=== PATIENT | male | born 1970 | race Caucasian/White ===

== ENCOUNTER 2018-12-23 06:21 | Day surgery (SDC) | payer OTHER, SELFPAY ==
[2018-12-23] VITALS (7 sets, daily range): BP systolic 112–136; BP diastolic 79–96; PULSE 72–85; RESP 16–18; TEMP 36.3–37.2; O2SAT 93–97; BMI 38.0
--- NOTE | 2018-12-23 07:30 | COLBX_PTH ---
PATIENT: CORDELIA DUPREE LOC: EN U#:[id number] AGE/SX: 48/M ROOM: RE12/23/[address]: Dr. Denny Sauceda MD : [id number] BED: DIS: 12/23/2018 SPEC #: [id number] RECD: 12/23/18 09:58 STATUS: DENISE TOR #: [id number] KATINA: 12/23/18 07:[address]: Denny Sauceda DEPT: SURGICAL PATHOLOGY RECD BY: Mauricio Taylor ENTERED: 12/23/18 11:32 SP TYPE: COLON BX OT DR: Dr. Latasha Hobbs MD Tissues: Transverse colon Procedures: Surgery Specimen Level IV HEADER OPERATION: Colonoscopy - open access (MOD) PRE-OP DIAGNOSIS: Screening TISSUE SUBMITTED: Biopsy of distal transverse colon MICROSCOPIC DIAGNOSIS Distal transverse colon, biopsy: Tubular adenoma. TRISH:cherie 12/26/18 MICROSCOPIC DESCRIPTION Slides are reviewed. GROSS DESCRIPTION Received in fixative is one container labeled with the patient's name and designated distal transverse colon. The specimen consists of multiple irregular fragments of light monroe soft tissue that in aggregate measure 0.5 x 0.5 x 0.1 cm. The specimen is totally submitted in one cassette. / SJ:cherie 12/23/18 TC:1 CPT: 54119
--- NOTE | 2018-12-23 07:33 | HP.PCM_ITS ---
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 He denies any acute symptoms. No bright red blood per rectum or melena. No abdominal pain. He did have a previous colonoscopy 10 years prior but is not sure the reason. There is no personal or family history of colon polyps or colon cancer. He otherwise states that he enjoys good health. He states that last year he had some peptic ulcer issues but those have completely resolved. He is denying any epigastric discomfort at this time. Past Medical History Allergies No Known Allergies Allergy (Verified 12/21/18 08:28) Home Medications: Ambulatory Orders Medication Instructions Recorded Multivitamin [Multivitamins] 1 each PO DAILY 12/21/18 Smoking Status: Former smoker Tobacco Use: Cigarettes Review of Systems Constitutional: Denies: Anorexia HEENT: Denies: Difficulty Swallowing Cardiovascular: Denies: Chest Pain, Claudication Respiratory: Denies: Cough Gastrointestinal: Denies: Abdominal Pain, Nausea, Melena Endocrine: Denies: Change in Body Habitus VTE Information - Inpt Only VTE Present on Admission: No Patient Problems: Active and Suspected Problems Screening for intestinal cancer (Acute) - Physical Exam General: Alert, Oriented x3, Cooperative, No apparent distress HEENT: Atraumatic Oral: Moist Mucosa Lungs: Clear to auscultation Cardiovascular: Regular rate, Regular Rhythm Abdomen: Bowel Sounds Present, Soft, Non Tender, Obese Extremities: No Calf Tenderness Skin: No rashes Psych/Mental Status: Normal Affect Vital Signs Temp Pulse Resp BP Pulse Ox 97.4 F L 85 18 131/96 H 95 12/23/18 06:43 12/23/18 06:43 12/23/18 06:43 12/23/18 06:43 12/23/18 06:43 Oxygen Delivery Method Room Air Weight: 265 lb Body Mass Index (BMI) 38.0 Assessment/Plan All Active Problems Screening for intestinal cancer (Acute) Colonoscopy with possible biopsy or polypectomy is indicated. The patient is aware of the technique, benefits, risks, alternatives. He presents via our open access program today. Denny Sauceda M.D., F.A.C.S.
[2018-12-23 07:55] LABS: Absolute Lymphocyte Count 2.08 X10^3/ul (0.83-4.51); Absolute Neutrophil Count 4.3 X10^3/uL (2.0-7.7); Basophil# 0.03 X10^3/uL; Basophil% 0.4 % (0-1); Eosinophil# 0.16 X10^3/uL; Eosinophils% 2.2 % (0-5); Hematocrit 44.9 % (40-54); Hemoglobin 15.6 g/dl (13.0-16.5); Lymphocyte # 2.08 X10^3/ul (4.0); Lymphocyte % 28.9 % (19-41); Mean Corp Hgb Conc 34.7 g/gl (32-36); Mean Corpuscular Hgb 31.6 pg (27.0-32.0); Mean Corpuscular Volume 91.1 fL (80-94); Mean Platelet Vol. 9.9 fl (6.2-12.0); Monocyte# 0.67 X10^3/uL; Monocyte% 9.3 % (0-10); Neutrophil # 4.26 X10^3/uL (2.7-7.7); Neutrophil % 59.2 % (47-70); POSITIVE COUNT NO; POSITIVE DIFFERENTIAL NO; POSITIVE MORPHOLOGY NO; Platelet Count 213 K/mm3 (150-450); RBC Distribution Width CV 12.7 % (11.6-14.6); Red Blood Count 4.93 M/mm3 (4.6-6.2); White Blood Count 7.2 K/mm3 (4.4-11.0)
--- NOTE | 2018-12-23 08:08 | OP.ENDO_ITS ---
12/23/2018 Latasha Hobbs [place] [id number] [address] Re : Colonoscopy procedure for Rafael Villafuerte Dear Dr. Hobbs This procedure was performed on Sunday, December 23, 2018. My impressions and recommendations are as follows: Impressions : - Hemorrhoids found on perianal exam. - Diverticulosis in the sigmoid colon and in the descending colon. - Possible 3 mm polyp in the distal transverse colon, removed with a cold biopsy forceps. Resected and retrieved. Recommendations : - Discharge patient to home. - Resume previous diet. - Continue present medications. - Telephone my office for pathology results in 1 week. - Repeat colonoscopy (date not yet determined) for surveillance based on pathology results. My findings are described in the full procedure note, which is enclosed. If I can be of further assistance, please feel free to contact me at Doctor phone number(s): Work: . Sincerely, Denny Sauceda MD 12/23/2018 8:08:13 AM This report has been signed electronically.
[2018-12-23 09:06] LABS: ALB/GLOB Ratio 1.2 RATIO (0.9-2.4); AST(SGOT) 37 U/L (15-37); Alanine Aminotransfer ALT/SGPT 71 U/L (16-61); Albumin, Serum 3.8 g/dL (3.2-5.0); Alkaline Phosphatase 117 U/L (45-117); Anion Gap 6 (5-15); BUN 12 mg/dL (7-18); BUN/Creat Ratio 10.3 RATIO (10-20); Calcium,Total 8.4 mg/dL (8.5-10.1); Chloride 107 mmol/L (98-107); Cholesterol 174 mg/dL (200); Creatinine, Serum 1.16 mg/dL (0.70-1.30); EST Glomerular Filtration Rate 71 mL/min (>60); Est Glom Filt Rate - Afr Amer 86 mL/min (>60); Estimated Creatinine Clearance 78.66 ml/min; Globulin 3.2 g/dL (2.2-4.2); Glucose 109 mg/dL (74-106); High Density Lipoprotein 39 mg/dL; Potassium 3.8 mmol/L (3.5-5.1); Sodium Level 140 mmol/L (136-145); Triglycerides 110 mg/dL; Very Low Density Lipoprotein 22 mg/dL (5-40)
== END 2018-12-23 08:37 | disposition home or self-care (01) ==
LOC: EN 06:24 → AC 06:25
PROVIDERS: Family Provider Family Medicine; PCP Family Medicine; Referring Provider Family Medicine; Visit Provider Surgery
PROC: 0DJD8ZZ Inspection of Lower Intestinal Tract, Via Natural or Artificial Opening Endoscopic (ICD-10-PCS; CPT 45378; principal; 2018-12-23 07:25)
DX: Z12.11 Encounter for screening for malignant neoplasm of colon (principal); D12.3 Benign neoplasm of transverse colon; K64.9 Unspecified hemorrhoids; K57.30 Diverticulosis of large intestine without perforation or abscess without bleeding; Z87.891 Personal history of nicotine dependence
CPT/HCPCS: 45380; 36415; 80053; 80061; 84443; 85025; 88305; 99152; 99153; J7120

== ENCOUNTER → 2019-09-15 16:38 | Outpatient (CLI) | payer OTHER, SELFPAY ==
[2018-12-23 06:43] VITALS: BMI 38.0
[2019-09-15 17:36] LABS: Absolute Lymphocyte Count 2.19 X10^3/uL (0.83-4.51); Absolute Neutrophil Count 4.3 X10^3/uL (2.0-7.7); Basophil# 0.04 X10^3/uL; Basophil% 0.6 % (0-1); Eosinophil# 0.15 X10^3/uL; Eosinophils% 2.1 % (0-5); Hematocrit 44.6 % (40-54); Hemoglobin 14.4 g/dL (13.0-16.5); Lymphocyte # 2.19 X10^3/ul (4.0); Lymphocyte % 30.5 % (19-41); Mean Corp Hgb Conc 32.3 g/dL (32-36); Mean Corpuscular Hgb 30.8 pg (27.0-32.0); Mean Corpuscular Volume 95.3 fL (80-94); Mean Platelet Vol. 11.7 fl (6.2-12.0); Monocyte# 0.53 X10^3/uL; Monocyte% 7.4 % (0-10); NRBC Flagged by Analyzer 0 % (0-5); Neutrophil # 4.25 X10^3/uL (2.7-7.7); Neutrophil % 59.3 % (47-70); Platelet Count 195 K/mm3 (150-450); RBC Distribution Width CV 12.8 % (11.6-14.6); RBC Distribution Width SD 43.9 fl (35.1-43.9); Red Blood Count 4.68 M/mm3 (4.6-6.2); White Blood Count 7.2 K/mm3 (4.4-11.0)
[2019-09-15 18:17] LABS: ALB/GLOB Ratio 1.3 RATIO (0.9-2.4); AST(SGOT) 15 U/L (15-37); Alanine Aminotransfer ALT/SGPT 40 U/L (16-61); Albumin, Serum 3.9 g/dL (3.2-5.0); Alkaline Phosphatase 104 U/L (45-117); Anion Gap 4 (5-15); BUN 22 mg/dL (7-18); BUN/Creat Ratio 21.2 RATIO (10-20); Calcium,Total 9.3 mg/dL (8.5-10.1); Chloride 108 mmol/L (98-107); Creatinine, Serum 1.04 mg/dL (0.70-1.30); EST Glomerular Filtration Rate 80 mL/min (>60); Est Glom Filt Rate - Afr Amer 97 mL/min (>60); Glucose 83 mg/dL (74-106); Potassium 4.1 mmol/L (3.5-5.1); Protein, Total 6.9 g/dL (6.4-8.2); Sodium Level 141 mmol/L (136-145); Thyroid Stim Hormone (TSH) 2.35 uIU/mL (0.358-3.74)
== END ==
PROVIDERS: PCP Family Medicine; Visit Provider Family Medicine
DX: K21.9 Gastro-esophageal reflux disease without esophagitis (principal); R42 Dizziness and giddiness
CPT/HCPCS: 36415; 80053; 84443; 85025

== ENCOUNTER 2019-10-17 09:08 | Day surgery (SDC) | payer OTHER, SELFPAY ==
[2019-09-21 15:15] VITALS: BMI 26.9
--- NOTE | 2019-09-22 12:53 | HP_ITS ---
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 Is patient in pain?: No Allergies No Known Allergies Allergy (Verified 09/21/19 15:17) Medications Multivitamin [Multivitamins] 1 ea PO DAILY 12/21/18 [History Confirmed 09/21/19] cyclobenzaprine 10 mg tablet 10 mg PO TID 09/21/19 [History Confirmed 09/21/19] PFSH Medical History (Updated 09/22/19 @ 12:52 by Deon Flores MD) Umbilical hernia (Acute) Ulcer (Acute) Acid reflux (Acute) Constipation (Acute) Diarrhea (Acute) Nausea (Acute) Back problem (Acute) Screening for intestinal cancer (Acute) Surgical History (Updated 09/21/19 @ 15:09 by Enedina Hummel) Hx of colonoscopy (Acute) History of esophagogastroduodenoscopy (EGD) (Acute) Family History (Updated 09/21/19 @ 15:10 by Enedina Hummel) Mother Non-Hodgkin lymphoma Hypertension Father Hypertension Sister Hypertension Social History (Updated 09/22/19 @ 12:53 by Deon Flores MD) Smoking Status: Former smoker second hand exposure: No alcohol intake: never substance use type: does not use caffeine: Yes HPI HPI HPI: CORDELIA DUPREE, is a 49 M who presents to the office today for HPI HPI Surgical H&P: Yes HPI: CORDELIA DUPREE is a 49 M who presents to the office today for umbilical hernia. Patient reports that he has been having umbilical bulging for months. He has become more noticeable ever since he lost weight. It bulges with any activity. ROS General General: Yes weight change (Intentional weight loss); no fatigue HEENT HEENT: No difficulty swallowing, eye injury or eye surgery Endo Endocrine: No thyroid disease or diabetes mellitus Skin Skin: No rash or changing moles Musc Musculoskeletal: Yes back problems; no arthritis or rheumatoid arthritis Cardio Cardiovascular: No murmur, pacemaker, heart disease, atrial fibrillation, high blood pressure, heart attack, heart stent, palpitations, shortness of breat with exertion or chest pain Psych Psychiatric: No depression or anxiety Resp Respiratory: No shortness of breath, No sleep apnea, No cough, No COPD, No asthma, No emphysema, No wheezing Gastro Gastrointestinal: Yes abdominal pain, Yes nausea or vomiting, No diarrhea, Yes constipation, No blood in stool, No acid reflux, No hemorrhoids, Yes ulcers, No gallbladder problem, No black,tarry stools Best Hematologic: No blood thinners Neuro Neurologic: Yes system reviewed and no additional complaints, except as docu Exam Const General: cooperative Orientation: alert, oriented x3 HENMT Head: normal to inspection Ears: hearing grossly normal bilaterally Eyes General: appearance normal, both eyes and all related structures Visual Peoples: normal visual peoples by confrontation Neck Neck: normal visual inspection Chest Chest palpation & inspection: normal inspection of the chest Resp Effort & Inspection: normal respiratory effort Auscultation: clear to auscultation bilaterally Cardio Rate: regular rate Rhythm: regular rhythm Heart Sounds: no murmurs GI Inspection: non-distended Palpation: soft, hernia umbilical, nontender Musc Cervical Spine: normal cervical lordosis, cervical ROM normal Skin General: no rashes or lesions noted Neuro General: alert, oriented x3 Cranial Nerves: CN's II-XI intact bilaterally Cognition: normal cognition Extrem General: normal to inspection, full ROM Psych Appearance: grossly normal Affect: normal affect Assessment & Plan 1. Umbilical hernia without obstruction and without gangrene K42.9 Plan The patient has a moderate sized reducible umbilical hernia. I discussed open umbilical hernia repair with mesh with him. The defect appears to be approximately 2 cm in diameter. I recommended mesh placement. I discussed the procedure in detail as well as the risks including but not limited to bleeding, infection, injury to underlying bowel, recurrence, mesh infection. Patient would like to proceed with umbilical hernia repair with mesh. Deon Flores MD Pager: [facility] [address] [place] [address], [address] [place] [address] Office: Coding Level of Care Code Off vis,new,level 4 Diagnoses Umbilical hernia without obstruction and without gangrene K42.9 ??Obstruction and gangrene presence: without obstruction or gangrene 09/22/19 1254 <Electronically signed by Deon peña MD> Date _ Deon Flores MD I have re-examined the patient. There are no clinical changes since date of exam.
--- NOTE | 2019-10-17 09:12 | EKG12_ITS ---
Test Reason : PRE OP Blood Pressure : / mmHG Vent. Rate : 052 BPM Atrial Rate : 052 BPM P-R Int : 160 ms QRS Dur : 088 ms QT Int : 420 ms P-R-T Axes : 070 058 056 degrees QTc Int : 390 ms Sinus bradycardia Septal infarct , age undetermined Abnormal ECG No previous ECGs available Confirmed by RANI SUBRAMANIAN ([id number]), order editor JEEVAN WYLIE ([id number]) on 10/19/2019 9:49:51 AM Referred By: Deon Flores Confirmed By:RANI SUBRAMANIAN
[2019-10-17 09:24] VITALS: BP 115/71; PULSE 62; RESP 16; TEMP 36.3; O2SAT 100; BMI 26.4
[2019-10-17] MEDS: Lactated Ringers 1,000 ML 100 ML IV (09:43)
[2019-10-17] MEDS: Cefazolin 2 GM in 0.9% Normal Saline 100 ML IV (11:00)
[2019-10-17] MEDS: Bupiv/Epi 0.5% Mpf 30 ML Vial (11:56)
[2019-10-17 12:08] VITALS: BP 115/71; BP 118/78; PULSE 94; RESP 16; TEMP 37.3; O2SAT 98
[2019-10-17 12:15] VITALS: BP 115/69; BP 115/71; PULSE 87; RESP 16; O2SAT 97
--- NOTE | 2019-10-17 12:24 | OP.PCM_ITS ---
Problem List (1) Umbilical hernia Status: Acute Qualifiers: Obstruction and gangrene presence: without obstruction or gangrene Qualified Code(s): K42.9 - Umbilical hernia without obstruction or gangrene Report of Operation Date of Procedure: 10/17/19 Pre-Operative Diagnosis: Umbilical hernia Post-Operative Diagnosis: Same Surgery/Procedure Performed:: Umbilical hernia repair with mesh Specimen's removed: None Description of Procedure: Patient was brought back to the operating room and general anesthesia was induced. The abdomen was prepped and draped in usual sterile fashion. A curvilinear incision was marked in the skin below the umbilicus and injected with local anesthetic. An incision was then made and deepened to the stalk of the umbilicus. The stalk was taken off the anterior abdominal wall. The hernia defect was identified and grasped at either end with a [place] clamp and elevated. The peritoneum was from the anterior abdominal wall and the preperitoneal space was developed circumferentially. The patient had a defect in the posterior abdominal wall superior to the umbilicus as well. This was about 1 cm in diameter. Once the preperitoneal space was developed the peritoneal defect was closed with a running 3-0 Vicryl suture. Next the superior defect was closed from the inside using a 0 PDS suture in a [id number] fashion. The 6.[address] mesh was placed into the preperitoneal space and sutured to the anterior abdominal wall using 0 PDS sut ures. Next the area was irrigated and suctioned dry. The fascia was then closed with 3 interrupted bvgvdq-[id number] 0 PDS sutures. The umbilical stalk was then resutured to the anterior abdominal wall using a 3-0 Vicryl suture. The subcutaneous space was irrigated and suctioned dry. The incision was closed with a running 4-0 Monocryl suture and the skin was reanesthetized. Steri- Strips and a cottonball and bandage were placed over the umbilicus. The patient tolerated the procedure well was brought to PACU in stable condition. Grafts/Implants Used: 6.4 cm round ventralex mesh - Admit VTE Documentation VTE Mechan Device Prophylaxis: SCD's
--- NOTE | 2019-10-17 12:29 | DCINST_ITS ---
Discharge Diet: Light diet - advance as tolerated Discharge Activity: Return to Normal Activity, May Not Drive - for 2-3 days or while taking narcotic pain meds., May Shower - with the bandage in place 1-2 days after surgery. Lifting Restrictions: 20 pounds for 6 weeks. Additional Activity Instructions:: Climbing stairs is fine, walking is encouraged. Sitting in bed may be uncomfortable. Sitting up using your lateral muscles (sitting up sideways) is usually more comfortable. Do not drive, work heavy equipment of sign legal documents for 24 hours. Pain medications may cause nausea, you should typically eat light foods as you take your pain medications. Pain medications may also cause constipation. If you have difficulty with this, discuss with your doctor. Call your doctor if your incision/area has: Continuous Slow Oozing, Sudden Increased Bleeding, Increased Pain/ Swelling, Increased Redness, Foul Smelling Discharge Call your doctor if you observe: Fever of 101 or Higher Suture Line Care: Avoid Pulling/Pushing, Avoid Pinching/Bending Change Dressing in (Days):: 3 - Leave steri-strips for 1 week. May protect with a guaze bandaid. Cleanse incision/area with: Keep Dressing Clean & Dry Allergies/Adverse Reactions: Allergies No Known Allergies Allergy (Verified 10/17/19 09:20) Medications to take at Discharge Multivitamin [Multivitamins] 1 ea PO DAILY 12/21/18 cyclobenzaprine 10 mg tablet 10 mg PO TID PRN 09/21/19 Oxycodone HCl/Acetaminophen [Percocet 5-325 mg Tablet] 1 - 2 tab PO Q6H PRN 5 Days #30 tablet 10/17/19 The following prescriptions were given: Oxycodone HCl/Acetaminophen [Percocet 5-325 mg Tablet] 1 - 2 tab PO Q6H PRN 5 Days #30 tablet PRN Reason: Pain Score 4-10/10 Transmission Status: Sent to [facility] Test Results: Test results from this visit will be discussed in further detail at your follow- up appointment, if applicable. Please Follow Up With: Deon Flores MD When: Please call to schedule 2 week follow up appointment. [phone]
[2019-10-17 12:30] VITALS: BP 113/78; BP 115/71; PULSE 84; RESP 16; TEMP 37.3; O2SAT 98
[2019-10-17] MEDS: Acetaminophen 325 MG Tablet PO (13:14)
[2019-10-17] MEDS: oxyCODONE 5 MG Tablet PO (13:14)
[2019-10-17 14:04] VITALS: BP 115/71; BP 122/78; PULSE 60; RESP 16; TEMP 36.2; O2SAT 99
== END 2019-10-17 14:06 | disposition home or self-care (01) ==
LOC: SDC 09:09 → AC 09:10
PROVIDERS: PCP Family Medicine; Referring Provider Surgery; Visit Provider Surgery
PROC: (CPT 49585; principal; 2019-10-17 10:45)
DX: K42.9 Umbilical hernia without obstruction or gangrene (principal); K21.9 Gastro-esophageal reflux disease without esophagitis; Z87.891 Personal history of nicotine dependence; Z79.899 Other long term (current) drug therapy
CPT/HCPCS: 00830; 49585; 93005; C1781; J7120; J2405